=== PATIENT | female | born 1935 | race Two or more races ===

== ENCOUNTER → 2023-12-28 | Outpatient (CLI) | payer MEDICARE, BC, SELFPAY ==
[2023-12-28 10:35] LABS: Basophils % (Auto) 0 % (0-2.5); Eosinophils # (Auto) 0.1 Thou/mm3 (0.0-0.5); Eosinophils % (Auto) 1 % (0-10); Hematocrit 36.9 % (36.0-46.0); Hemoglobin 12.7 g/dL (12.0-16.0); Immature Granulocytes % (Auto) 0 % (0-0); Immature Granulocytes Auto 0.02 Thou/mm3 (0.00-0.00); Lymphocytes # (Auto) 2.4 Thou/mm3 (1.0-4.8); Lymphocytes % (Auto) 39 % (10-50); Mean Corpuscular HGB Conc 34.4 g/dl (31.0-37.0); Mean Corpuscular Hemoglobin 30.6 pg (25.0-35.0); Mean Corpuscular Volume 89 fL (80-100); Monocytes # (Auto) 0.4 Thou/mm3 (0.0-0.8); Monocytes % (Auto) 7 % (0-12); Neutrophils # (Auto) 3.1 Thou/mm3 (1.8-7.7); Neutrophils % (Auto) 52 % (37-80); Nucleated Red Blood Cell % 0 /100 WBC (0); Platelet Count 167 Thou/mm3 (140-440); RDW Standard Deviation 45.7 fL (36.4-46.3); Red Blood Count 4.15 Miln/mm3 (4.00-5.20)
[2023-12-28 10:53] LABS: Alanine Aminotransferase 14 U/L (10-49); Albumin, Serum 4.2 gm/dL (3.4-4.8); Albumin/Globulin Ratio 1.6 (1.2-2.2); Alkaline Phosphatase 74 U/L (46-116); Anion Gap 7 (7-16); Aspartate Amino Transferase 24 U/L (0-34); BUN/Creatinine Ratio 24 Ratio (12-20); Bilirubin,Total 0.7 mg/dL (0.3-1.2); Blood Urea Nitrogen 19 mg/dL (9-23); Calcium 9.2 mg/dL (8.3-10.6); Calcium (Corrected) 9.2 mg/dL (8.5-10.1); Carbon Dioxide 29.4 mMol/L (20.0-31.0); Cardiac Risk Estimate 3.1 RATIO (3.7-5.6); Chloride 106 mMol/L (98-107); Cholesterol 159 mg/dL (132-200); Creatinine (Component) 0.8 mg/dL (0.6-1.3); Globulin 2.6 gm/dL (2.3-3.5); Glucose 116 mg/dL (74-106); HDL Cholesterol 51 mg/dL (40-60); LDL Cholesterol,Calculated 84 mg/dL (0-130); Osmolality,Calculated 286 (275-295); Potassium 3.8 mMol/L (3.4-5.1); Sodium 142 mMol/L (136-145); Total Protein 6.8 gm/dL (5.7-8.2); Triglycerides 122 mg/dL (30-150); eGFR > 60 See Note
[2023-12-28 11:14] LABS: Glucose Estimated Average 128 mg/dL (80-131); Hemoglobin A1C 6.1 % Hgb (4.8-6.0)
== END | disposition home or self-care (01) ==
LOC: COPL 09:29
PROVIDERS: PCP Family Medicine; Referring Provider Family Medicine; Visit Provider Family Medicine
DX: I12.9 Hypertensive chronic kidney disease with stage 1 through stage 4 chronic kidney disease, or unspecified chronic kidney disease (principal); E11.22 Type 2 diabetes mellitus with diabetic chronic kidney disease; N18.1 Chronic kidney disease, stage 1; E78.2 Mixed hyperlipidemia
CPT/HCPCS: 36415; 80053; 80061; 83036; 85025

== ENCOUNTER → 2024-01-20 | Outpatient (CLI) | payer MEDICARE, BC, SELFPAY ==
--- NOTE | 2024-01-20 13:51 | XR_ITS ---
Examination: Lumbar spine, 5 views Technique: Lumbar spine AP, lateral, coned lateral lower lumbar spine, bilateral obliques 5 views Exam date and time: January 20, 2024 1527 hours INDICATIONS: Patient fell 2 weeks ago with injury to lower back, lower back pain. FINDINGS: Adequate alignment lumbar vertebral bodies No lumbar fracture Moderate disc narrowing L5-S1 No spondylolisthesis IMPRESSION: No lumbar fracture Moderate degenerative disc disease L5-S1
--- NOTE | 2024-01-20 13:52 | XR_ITS ---
EXAMINATION: Cervical spine, 5 views Technique: Cervical spine AP, AP odontoid, lateral, bilateral obliques, 5 views Exam date and time: January 20, 2024 1527 hours INDICATIONS: Patient fell 2 weeks ago with injury to the neck, neck pain FINDINGS: Satisfactory alignment cervical vertebral bodies No cervical fracture Mild disc narrowing C5-C6 No significant neural foraminal stenosis The odontoid is intact IMPRESSION: No cervical fracture
== END | disposition home or self-care (01) ==
PROVIDERS: PCP Family Medicine; Referring Provider Physician Assistant; Visit Provider Physician Assistant
DX: M51.379 Other intervertebral disc degeneration, lumbosacral region without mention of lumbar back pain or lower extremity pain (principal); S19.9XXA Unspecified injury of neck, initial encounter; S39.92XA Unspecified injury of lower back, initial encounter; W19.XXXA Unspecified fall, initial encounter
CPT/HCPCS: 72050; 72110

== ENCOUNTER → 2024-05-10 | Outpatient (CLI) | payer MEDICARE, BC, SELFPAY ==
[2024-05-10 12:12] LABS: Glucose Estimated Average 120 mg/dL (80-131); Hemoglobin A1C 5.8 % Hgb (4.8-6.0)
[2024-05-10 12:59] LABS: Alanine Aminotransferase 14 U/L (10-49); Albumin, Serum 3.9 gm/dL (3.4-4.8); Albumin/Globulin Ratio 1.6 (1.2-2.2); Alkaline Phosphatase 69 U/L (46-116); Anion Gap 7 (7-16); Aspartate Amino Transferase 26 U/L (0-34); BUN/Creatinine Ratio 22 Ratio (12-20); Bilirubin,Total 0.5 mg/dL (0.3-1.2); Blood Urea Nitrogen 20 mg/dL (9-23); Calcium 8.8 mg/dL (8.3-10.6); Calcium (Corrected) 8.9 mg/dL (8.5-10.1); Carbon Dioxide 28.7 mMol/L (20.0-31.0); Chloride 108 mMol/L (98-107); Creatinine (Component) 0.9 mg/dL (0.6-1.3); Globulin 2.5 gm/dL (2.3-3.5); Glucose 110 mg/dL (74-106); Osmolality,Calculated 290 (275-295); Potassium 3.9 mMol/L (3.4-5.1); Sodium 144 mMol/L (136-145); Total Protein 6.4 gm/dL (5.7-8.2); eGFR > 60 See Note
== END | disposition home or self-care (01) ==
LOC: COPL 11:38
PROVIDERS: PCP Family Medicine; Referring Provider Family Medicine; Visit Provider Family Medicine
DX: E11.9 Type 2 diabetes mellitus without complications (principal); K21.9 Gastro-esophageal reflux disease without esophagitis; I10 Essential (primary) hypertension
CPT/HCPCS: 36415; 80053; 83036

== ENCOUNTER → 2024-07-22 | Outpatient (CLI) | payer MEDICARE, BC, SELFPAY ==
[2024-07-22 12:49] LABS: Basophils % (Auto) 0 % (0-2.5); Eosinophils # (Auto) 0.1 Thou/mm3 (0.0-0.5); Eosinophils % (Auto) 1 % (0-10); Hematocrit 34.8 % (36.0-46.0); Hemoglobin 11.8 g/dL (12.0-16.0); Immature Granulocytes % (Auto) 0 % (0-0); Immature Granulocytes Auto 0.01 Thou/mm3 (0.00-0.00); Lymphocytes # (Auto) 2.2 Thou/mm3 (1.0-4.8); Lymphocytes % (Auto) 37 % (10-50); Mean Corpuscular HGB Conc 33.9 g/dl (31.0-37.0); Mean Corpuscular Hemoglobin 31.1 pg (25.0-35.0); Mean Corpuscular Volume 92 fL (80-100); Monocytes # (Auto) 0.4 Thou/mm3 (0.0-0.8); Monocytes % (Auto) 7 % (0-12); Neutrophils # (Auto) 3.3 Thou/mm3 (1.8-7.7); Neutrophils % (Auto) 55 % (37-80); Nucleated Red Blood Cell % 0 /100 WBC (0); Platelet Count 165 Thou/mm3 (140-440); RDW Standard Deviation 46.1 fL (36.4-46.3)
[2024-07-22 12:56] LABS: Partial Thromboplastin Time 25.9 Seconds (22.0-36.0); Prothrombin Time 11.2 Seconds (9.0-12.2)
[2024-07-22 13:04] LABS: Anion Gap 9 (7-16); BUN/Creatinine Ratio 21 Ratio (12-20); Blood Urea Nitrogen 23 mg/dL (9-23); Calcium 8.8 mg/dL (8.3-10.6); Carbon Dioxide 27.9 mMol/L (20.0-31.0); Chloride 106 mMol/L (98-107); Creatinine (Component) 1.1 mg/dL (0.6-1.3); Glucose 153 mg/dL (74-106); Osmolality,Calculated 291 (275-295); Potassium 3.8 mMol/L (3.4-5.1); Sodium 143 mMol/L (136-145); eGFR 49 See Note
== END | disposition home or self-care (01) ==
LOC: COPL 11:55
PROVIDERS: PCP Family Medicine; Referring Provider Internal Medicine; Visit Provider Internal Medicine
DX: I25.10 Atherosclerotic heart disease of native coronary artery without angina pectoris (principal); I48.91 Unspecified atrial fibrillation
CPT/HCPCS: 36415; 80048; 85025; 85610; 85730

== ENCOUNTER → 2024-08-10 | Outpatient (CLI) | payer MEDICARE, BC, SELFPAY ==
[2024-08-10 08:42] LABS: Basophils # (Auto) 0.0 Thou/mm3 (0.0-0.2); Basophils % (Auto) 1 % (0-2.5); Eosinophils # (Auto) 0.1 Thou/mm3 (0.0-0.5); Eosinophils % (Auto) 2 % (0-10); Hematocrit 34.4 % (36.0-46.0); Hemoglobin 11.6 g/dL (12.0-16.0); Immature Granulocytes Auto 0.01 Thou/mm3 (0.00-0.00); Lymphocytes # (Auto) 2.4 Thou/mm3 (1.0-4.8); Lymphocytes % (Auto) 42 % (10-50); Mean Corpuscular HGB Conc 33.7 g/dl (31.0-37.0); Mean Corpuscular Hemoglobin 31.1 pg (25.0-35.0); Mean Corpuscular Volume 92 fL (80-100); Monocytes # (Auto) 0.5 Thou/mm3 (0.0-0.8); Monocytes % (Auto) 8 % (0-12); Neutrophils # (Auto) 2.7 Thou/mm3 (1.8-7.7); Neutrophils % (Auto) 48 % (37-80); Nucleated Red Blood Cell # 0.00 Thou/mm3 (0.00-0.00); Nucleated Red Blood Cell % 0 /100 WBC (0); Platelet Count 176 Thou/mm3 (140-440); RDW Standard Deviation 46.0 fL (36.4-46.3); Red Blood Count 3.73 Miln/mm3 (4.00-5.20); White Blood Count 5.7 Thou/mm3 (3.6-11.0)
[2024-08-10 09:07] LABS: Alanine Aminotransferase 12 U/L (10-49); Albumin, Serum 3.8 gm/dL (3.4-4.8); Albumin/Globulin Ratio 1.4 (1.2-2.2); Alkaline Phosphatase 58 U/L (46-116); Anion Gap 5 (7-16); Aspartate Amino Transferase 26 U/L (0-34); BUN/Creatinine Ratio 20 Ratio (12-20); Bilirubin,Total 0.8 mg/dL (0.3-1.2); Blood Urea Nitrogen 20 mg/dL (9-23); Calcium 8.8 mg/dL (8.3-10.6); Calcium (Corrected) 9.0 mg/dL (8.5-10.1); Carbon Dioxide 29.9 mMol/L (20.0-31.0); Cardiac Risk Estimate 3.5 RATIO (3.7-5.6); Chloride 109 mMol/L (98-107); Cholesterol 154 mg/dL (132-200); Creatinine (Component) 1.0 mg/dL (0.6-1.3); Globulin 2.7 gm/dL (2.3-3.5); Glucose 96 mg/dL (74-106); HDL Cholesterol 44 mg/dL (40-60); LDL Cholesterol,Calculated 84 mg/dL (0-130); Osmolality,Calculated 289 (275-295); Potassium 3.9 mMol/L (3.4-5.1); Sodium 144 mMol/L (136-145); Total Protein 6.5 gm/dL (5.7-8.2); Triglycerides 128 mg/dL (30-150); eGFR 55 See Note
[2024-08-10 09:11] LABS: Glucose Estimated Average 114 mg/dL (80-131); Hemoglobin A1C 5.6 % Hgb (4.8-6.0)
== END | disposition home or self-care (01) ==
LOC: COPL 07:41
PROVIDERS: PCP Family Medicine; Referring Provider Family Medicine; Visit Provider Family Medicine
DX: E11.22 Type 2 diabetes mellitus with diabetic chronic kidney disease (principal); N18.31 Chronic kidney disease, stage 3a; E78.2 Mixed hyperlipidemia
CPT/HCPCS: 36415; 80053; 80061; 83036; 85025

== ENCOUNTER → 2024-08-29 | Outpatient (CLI) | payer MEDICARE, BC, SELFPAY ==
--- NOTE | 2024-08-29 13:45 | XR_ITS ---
Examination: Screening digital mammography, bilateral Computer aided detection 3-D breast Tomosynthesis, bilateral Date and time of exam: August 29, 2024 1401 hours Compared to mammograms dating to February 10, 2019 Indication: Screening Technique: Nonmagnified MLO, CC views of the breasts to been obtained, reconstructed from 3-D Tomosynthesis images. R2 computer aided detection program utilized for evaluation of suspicious masses and/or abnormal calcifications. 3-D Tomosynthesis images obtained. Findings: The breasts are heterogeneously dense, which may obscure small masses Benign calcifications No interval suspicious masses Impression: BI-RADS category II: Benign Findings. Recommend 1 year follow-up mammogram.
--- NOTE | 2024-08-29 14:00 | XR_ITS ---
Examination: Bone densitometry Date and time of exam:August 29, 2024 1403 hours INDICATIONS: Hysterectomy age 37, diabetic, personal history osteopenia Technique: Lumbar spine and hip total bone mineralization values of an calculated. Peak reference and age match control results have been displayed. Findings: Lumbar spine total bone mineralization is0.972 gm/cm2. This is 0.7 standard deviations below peak reference. Hip total bone mineralization is 0.762 gm/cm2 This is 1.5 standard deviations below peak reference. Impression: There is normal mineralization based on lumbar spine measurements. There is osteoporosis based on hip measurements Lumbar mineralization is increase 0.9% compared with 11/08/2021 Hip mineralization is decreased 1.6% compared with 11/08/2021
== END | disposition home or self-care (01) ==
LOC: CDIM 13:32
PROVIDERS: Referring Provider Family Medicine; Visit Provider Family Medicine
DX: Z12.31 Encounter for screening mammogram for malignant neoplasm of breast (principal); R92.1 Mammographic calcification found on diagnostic imaging of breast; R92.333 Mammographic heterogeneous density, bilateral breasts; M81.0 Age-related osteoporosis without current pathological fracture
CPT/HCPCS: 77063; 77067; 77080

== ENCOUNTER → 2024-09-28 | Outpatient (CLI) | payer MEDICARE, BC, SELFPAY ==
[2024-10-03 06:57] LABS: Fecal Globin Result NOT DETECTED (NOT DETECTED)
== END | disposition home or self-care (01) ==
LOC: SLDO 11:09
PROVIDERS: PCP Family Medicine; Referring Provider Family Medicine; Visit Provider Family Medicine
DX: Z12.11 Encounter for screening for malignant neoplasm of colon (principal)
CPT/HCPCS: 82274; G0328

== ENCOUNTER → 2024-12-16 | Outpatient (CLI) | payer MEDICARE, BC, SELFPAY ==
[2024-12-16 16:26] LABS: Basophils # (Auto) 0.0 Thou/mm3 (0.0-0.2); Basophils % (Auto) 1 % (0-2.5); Eosinophils # (Auto) 0.1 Thou/mm3 (0.0-0.5); Eosinophils % (Auto) 1 % (0-10); Hematocrit 36.7 % (36.0-46.0); Hemoglobin 12.6 g/dL (12.0-16.0); Immature Granulocytes Auto 0.01 Thou/mm3 (0.00-0.00); Lymphocytes # (Auto) 2.4 Thou/mm3 (1.0-4.8); Lymphocytes % (Auto) 37 % (10-50); Mean Corpuscular HGB Conc 34.3 g/dl (31.0-37.0); Mean Corpuscular Hemoglobin 31.0 pg (25.0-35.0); Mean Corpuscular Volume 90 fL (80-100); Monocytes # (Auto) 0.4 Thou/mm3 (0.0-0.8); Monocytes % (Auto) 7 % (0-12); Neutrophils # (Auto) 3.5 Thou/mm3 (1.8-7.7); Neutrophils % (Auto) 54 % (37-80); Nucleated Red Blood Cell # 0.00 Thou/mm3 (0.00-0.00); Nucleated Red Blood Cell % 0 /100 WBC (0); Platelet Count 180 Thou/mm3 (140-440); RDW Standard Deviation 44.6 fL (36.4-46.3); Red Blood Count 4.06 Miln/mm3 (4.00-5.20); White Blood Count 6.4 Thou/mm3 (3.6-11.0)
[2024-12-16 16:53] LABS: Iron 69 mcg/dL (50-170); Percent Iron Saturation 23 % (20-55); Total Iron Binding Capacity 291 mcg/dL (250-425); Unsaturated Iron Binding 222 (225-295)
== END | disposition home or self-care (01) ==
LOC: COPL 13:56
PROVIDERS: PCP Family Medicine; Referring Provider Registered Nurse; Visit Provider Registered Nurse
DX: D64.9 Anemia, unspecified (principal)
CPT/HCPCS: 36415; 83540; 83550; 85025

== ENCOUNTER 2025-01-16 15:52 | Emergency (ER) | payer MEDICARE, BC, SELFPAY ==
[2025-01-16 15:59] VITALS: BP 167/100; PULSE 87; RESP 28; TEMP 36.4; O2SAT 96; BMI 20.1
--- NOTE | 2025-01-16 16:10 | XR_ITS ---
Examination: CT brain head without contrast. 2-D sagittal coronal reconstructions Date and time of exam: 01/16/2025 at 5:21 p.m. CTDI: vol (mGy): 46.5 DLP: (mGycm): 940 Technique: Multiple CT axial sections of the brain have been obtained, 5 mm slice thickness. Contrast has not been administered. 2-D sagittal, coronal reconstructions have been obtained Low dose protocols were performed. One or more of the following dose reduction techniques were used; automated exposure control, adjustment of the mA and/or KV according to patient size, use of iterative reconstruction technique. INDICATION: Pain in the back of her head after traumatic fall today Findings: There is moderately prominent dilatation of the lateral ventricles and the third ventricle, consistent with moderate central atrophy, perfectly consistent with the patient's advanced age there is heavy calcification of the internal carotid arteries bilaterally within the region of the cavernous sinus. There is significant generalized atrophy of both right and left sella cerebellar hemispheres and there is significant dilatation of the sylvian cisterns bilaterally and of the extra axial space overlying the anterior temporal lobes consistent with significant atrophy in the anterior temporal lobes bilaterally. 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 There are patchy areas of decreased attenuation involving the periventricular cerebral white matter consistent with age changes. There is no evidence of any acute or recent cerebral infarct anywhere. There is no evidence of any subdural hematoma and there is no evidence of any fracture involving the calvarium. All paranasal sinuses and mastoids are clear and normal bilaterally. The visible upper cervical spine appears normal Impression: Negative for acute hemorrhage, mass effect or midline shift, also negative for any traumatic abnormalities. 2 there is moderately prominent dilatation of the lateral and third ventricles consistent with central atrophy, there is diffuse patchy decreased attenuation in the cerebral white matter likewise related to chronic atrophic change, and there is significant dilatation of the extra-axial space over the anterior temporal lobes and within the sylvian cisterns bilaterally, relating to atrophy this is consistent with the patient's advanced age, there is also prominent atrophy of the cerebellar hemispheres bilaterally
--- NOTE | 2025-01-16 16:10 | XR_ITS ---
Upright PA and lateral chest film on 01/16/2025 at 4:34: P.m. Comparison study 05/10/2019 INDICATION: Shortness of breath today FINDINGS: The heart size and configuration are normal. There is mild tortuosity and elongation of the thoracic aorta and there is heavy atherosclerotic calcification throughout the descending aorta. Hilar regions and pulmonary vascularity and mediastinum appear radiographically normal. Both lungs and pleural space appear clear normal. The lateral film shows a pectus excavatum deformity involving the sternum. There is very minimal degenerative disc space narrowing with surrounding osteophyte seen at multiple levels throughout the dorsal spine. IMPRESSION: 1. Essentially negative chest film for the patient's age 2. See above regarding some minor finding
--- NOTE | 2025-01-16 16:13 | EKG_ITS ---
[facility] Test Date: 2025-01-16 Pat Name: SUZAN CURRY Department: Room: - Gender: Female Hand Shaper: : [id number] Requested By: Bryson Llamas Order Number: [id number] Reading MD: Bryson Llamas Measurements Intervals [place] Rate: 81 P: 76 WI: 178 QRS: 268 QRSD: 74 T: 64 QT: 375 QTc: 436 Interpretive Statements SINUS RHYTHM POSSIBLE LEFT ATRIAL ENLARGEMENT [-0.1mV P-WAVE IN V1/V2] RIGHT AXIS DEVIATION [QRS AXIS > 100] POSSIBLE RIGHT VENTRICULAR CONDUCTION DELAY [RSR (QR) IN V1/V2] POSSIBLE ANTERIOR MYOCARDIAL INFARCTION , OF INDETERMINATE AGE [30 ms Q WAVE IN V3/V4, OR R < 0.2 mV IN V4] Compared to ECG 03/14/2021 09:53:06 Right-axis deviation now present Myocardial infarct finding now present Left-axis deviation no longer present T-wave abnormality no longer present /store/S0/[id number].pdf
--- NOTE | 2025-01-16 16:13 | PD.EDRME ---
Rapid Medical Screening Exam RME Arrival date/time: 01/16/25 15:52 89-year-old female with a history of hypertension reports with complaints of dizziness chest pain and shortness of breath and a fall hitting her head today Chief Complaint: Fall Time Seen by Provider: 01/16/25 16:04 Vital signs: Vital Signs Temperature 97.6 F 01/16/25 15:59 Pulse Rate 87 01/16/25 15:59 Respiratory Rate 28 H 01/16/25 15:59 Blood Pressure 167/100 H 01/16/25 15:59 Pulse Oximetry (%) 96 01/16/25 15:59 Oxygen Delivery Method Room Air 01/16/25 15:59 Exam: - Clinical Impression: -
[2025-01-16 16:58] LABS: Basophils # (Auto) 0.0 Thou/mm3 (0.0-0.2); Basophils % (Auto) 0 % (0-2.5); Eosinophils # (Auto) 0.0 Thou/mm3 (0.0-0.5); Eosinophils % (Auto) 0 % (0-10); Hematocrit 37.6 % (36.0-46.0); Hemoglobin 13.2 g/dL (12.0-16.0); Immature Granulocytes Auto 0.04 Thou/mm3 (0.00-0.00); Lymphocytes # (Auto) 2.1 Thou/mm3 (1.0-4.8); Lymphocytes % (Auto) 16 % (10-50); Mean Corpuscular HGB Conc 35.1 g/dl (31.0-37.0); Mean Corpuscular Hemoglobin 31.1 pg (25.0-35.0); Mean Corpuscular Volume 89 fL (80-100); Monocytes # (Auto) 0.8 Thou/mm3 (0.0-0.8); Monocytes % (Auto) 7 % (0-12); Neutrophils # (Auto) 9.7 Thou/mm3 (1.8-7.7); Neutrophils % (Auto) 77 % (37-80); Nucleated Red Blood Cell # 0.00 Thou/mm3 (0.00-0.00); Nucleated Red Blood Cell % 0 /100 WBC (0); Platelet Count 209 Thou/mm3 (140-440); RDW Standard Deviation 42.1 fL (36.4-46.3); Red Blood Count 4.25 Miln/mm3 (4.00-5.20); White Blood Count 12.7 Thou/mm3 (3.6-11.0)
[2025-01-16 17:10] LABS: B-Type Natriuretic Peptide 72 pg/mL (0-100)
[2025-01-16 17:12] LABS: Alanine Aminotransferase 23 U/L (10-49); Albumin, Serum 4.5 gm/dL (3.4-4.8); Albumin/Globulin Ratio 1.4 (1.2-2.2); Alkaline Phosphatase 66 U/L (46-116); Anion Gap 17 (7-16); Aspartate Amino Transferase 75 U/L (0-34); BUN/Creatinine Ratio 18 Ratio (12-20); Bilirubin,Total 2.0 mg/dL (0.3-1.2); Blood Urea Nitrogen 20 mg/dL (9-23); Calcium 9.7 mg/dL (8.3-10.6); Calcium (Corrected) 9.7 mg/dL (8.5-10.1); Carbon Dioxide 22.9 mMol/L (20.0-31.0); Chloride 102 mMol/L (98-107); Creatinine (Component) 1.1 mg/dL (0.6-1.3); Globulin 3.2 gm/dL (2.3-3.5); Glucose 147 mg/dL (74-106); Magnesium 1.0 mg/dL (1.6-2.6); Osmolality,Calculated 288 (275-295); Potassium 3.5 mMol/L (3.4-5.1); Sodium 142 mMol/L (136-145); Total Protein 7.7 gm/dL (5.7-8.2); Troponin I 0.038 ng/mL (0.0-0.045); eGFR 49 See Note
--- NOTE | 2025-01-16 17:34 | PD.EDADULT ---
ED General RME/HPI General Chief complaint: Fall Stated complaint: FALL YESTERDAY, HIT HEAD ON WOOD FLOOR, SOB, CP Time Seen by Provider: 01/16/25 16:04 Arrival date/time: 01/16/25 15:52 89-year-old female who is a poor historian is ambulatory to the emergency department with a multitudes of symptoms including dyspnea, chest pain and falling down. She reports that the fall was unwitnessed and is unsure if she hit her head or lost consciousness. The patient denies experiencing dizziness, blurred vision, tinnitus, nausea, vomiting, abdominal pain, or any neck or back pain. She mentions taking medications for hypertension and an aspirin daily. Although she does not recall taking any other medications or having additional medical conditions, her medical records suggest possible use of metformin and Fosamax. Limitations: no limitations RME / HPI RME / HPI narrative: 01/16/25 15:52 89-year-old female with a history of hypertension reports with complaints of dizziness chest pain and shortness of breath and a fall hitting her head today Exam: - Impression: - Related Data Home Medications ?Medication ?Instructions ?Recorded ?Confirmed Alendronate Sodium * (FOSAMAX *) 70 mg PO Q7D #0 tabs 05/21/15 03/20/20 Calcium Carbonate (Calcium 600) 1 tab PO BID ##0 05/21/15 03/20/20 hydrochlorothiazide 12.5 mg 12.5 mg PO QAM #0 caps 05/21/15 03/20/20 capsule (Microzide) lisinopril 10 mg tablet 10 mg PO QDAY #0 tabs 05/21/15 03/20/20 metformin 500 mg tablet 500 mg PO QDAY #0 tabs 02/23/20 03/20/20 (Glucophage) multivitamin 1 tab PO QDAY 02/23/20 03/20/20 Previous Rx's ?Medication ?Instructions ?Recorded nitrofurantoin 100 mg PO Q12H 7 days #14 caps 01/16/25 monohydrate/macrocrystals 100 mg capsule (Macrobid) Allergies Allergy/AdvReac Type Severity Reaction Status Date / Time No Known Allergies Allergy Verified 01/16/25 15:56 Review of Systems Constitutional Constitutional: Denies chills, Denies fatigue, Denies fever(s) and Denies frequent falls ENT Ears, Nose, Mouth, and Throat: Denies dizziness Cardiovascular Cardiovascular: Reports chest pain, Reports dyspnea and Denies syncope Respiratory Respiratory: Denies cough and Reports dyspnea Gastrointestinal Gastrointestinal: Denies abdominal pain, Denies nausea and Denies vomiting Genitourinary Genitourinary: Denies dysuria and Denies hematuria Musculoskeletal Musculoskeletal: Denies arthralgias and Denies back pain Integumentary/Breasts Skin/Breast: Denies rash and Denies skin pain Neurologic Neurologic: Denies dizziness, Denies frequent falls, Denies seizure-like activity and Denies syncope Endocrine Endocrine: Denies fatigue Past Medical History Past Medical History CARDIAC: Negative Congestive Heart Failure RESPIRATORY: Negative Chronic Obstructive Pulmonary Disease (COPD) GENITOURINARY: Negative Renal Disease ENDOCRINE: Positive Diabetes Mellitus Type 2; Negative Diabetes Mellitus Type 1 Social History SMOKING STATUS: Never smoker ED Exam General Limitations: Present no limitations General appearance: Present alert and anxious Head Head exam: Present atraumatic Eye Eye exam: Present normal appearance, PERRL and EOMI ENT ENT exam: Present normal exam, normal oropharynx and mucous membranes moist Neck Neck exam: Present normal inspection, full ROM and trachea midline Chest Chest inspection: Present normal inspection and symmetric chest wall rise Respiratory Respiratory exam: Present normal lung sounds bilaterally Cardiovascular Cardiovascular exam: Present regular rate, normal rhythm and normal heart sounds Abdominal Exam Abdominal exam: Present soft and normal bowel sounds Extremities Exam Extremities exam: Present normal inspection and full ROM Back Exam Back exam: Present normal inspection and full ROM Neurological Exam Neurological exam: Present alert, oriented X3 and CN II-XII intact Psychiatric Psychiatric exam: Present normal affect and normal mood Skin Skin exam: Present warm, dry, intact and normal color Course Course Course Narrative: 89-year-old female, who is a limited historian, presents ambulatory to the emergency department with multiple symptoms, including dyspnea, chest pain, and a fall. Her EKG shows normal sinus rhythm with no evidence of STEMI or ischemic changes. A chest X-ray is negative for infiltrates or opacities, and a head CT does not reveal any bleeds or shifts. Laboratory results, including BMP, CBC, CMP, and troponin, are unremarkable, but her magnesium level is low. She was administered 4g of magnesium sulfate IV replacement, which she tolerated well. A urine analysis indicates signs of infection, and she was given a gram of Rocephin in the ER and will be discharged with oral antibiotics, with a culture pending. The patient exhibits significant anxiety, particularly when discussing her health, sometimes hyperventilating, though she returns to baseline after the conversation ends. This suggests a possible psychosomatic component to her symptoms. The patient is otherwise stable nontoxic-appearing with stable vital signs and will be discharged with a follow-up visit to her primary care provider in 24 to 48 hours. She is also advised to return to the emergency department if symptoms should worsen. Discussed plan with Dr. Gustafson and he agreed with this disposition. Quality Measures none Orders Category Date Time Status EKG (ED ONLY) *Do not use* NOW Care 01/16/25 16:[address] head/brain wo con Stat Exams 01/16/25 16:10 Completed EKG (ED Only) Stat Exams 01/16/25 16:13 Draft XR chest 2V Stat Exams 01/16/25 16:10 Completed BNP [B-Type Natriuretic Peptide] Stat Lab 01/16/25 16:33 Completed CBC Stat Lab 01/16/25 16:33 Completed CMP [Comprehensive Metabolic Panel] Stat Lab 01/16/25 16:33 Completed Mag [Magnesium] Stat Lab 01/16/25 16:33 Completed Troponin I Stat Lab 01/16/25 16:33 Completed UA, C/S IF [Urinalysis, C/S if Indicated] Stat Lab 01/16/25 19:29 Completed Urine Culture Stat Lab 01/16/25 19:29 Received Magnesium Sulfate 4 GM Ivpb [Magnesium Sulfate Ivpb] Med 01/16/25 17:33 Discontinued 4 gm in 50 ml IV X1 cefTRIAXone/D5w 1gm IV premix [Rocephin/D5w 1gm IV Med 01/16/25 20:51 Discontinued premix] 1 gm in 50 ml IV X1 Vital Signs Vital signs: Vital Signs Temperature 97.6 F 01/16/25 15:59 Pulse Rate 87 01/16/25 15:59 Respiratory Rate 28 H 01/16/25 15:59 Blood Pressure 167/100 H 01/16/25 15:59 Pulse Oximetry (%) 96 01/16/25 15:59 Oxygen Delivery Method Room Air 01/16/25 15:59 Discharge Plan Plan Patient Disposition: HOME (Self Care) Prescriptions/Referrals Prescriptions/Med Rec: New nitrofurantoin monohyd/m-cryst [Macrobid] 100 mg capsule 100 mg PO Q12H 7 Days Qty: 14 0RF Rx Instructions: must administer with a meal/food No Action multivitamin Tablet 1 tab PO QDAY Alendronate Sodium * (FOSAMAX *) 70 MG tablet 70 mg PO Q7D Qty: 0 lisinopril 10 MG tablet 10 mg PO QDAY Qty: 0 hydrochlorothiazide [Microzide] 12.5 MG capsule 12.5 mg PO QAM Qty: 0 Calcium Carbonate (Calcium 600) 600 MG tablet 1 tab PO BID Qty: 0 metformin [Glucophage] 500 mg tablet 500 mg PO QDAY Qty: 0 Referrals: Rajiv Garcia MD [Primary Care Provider, Family Practice] - 01/18/25 Problem List Clinical Impression: Hypomagnesemia, Acute cystitis Patient/Caregiver Discharge Instructions Discharge Activity: activity as tolerated Education Materials: Discharge Instructions for ..., ED CYSTITIS Female Adult Additional Instructions: Take medications as directed hydrate well follow-up with your primary care provider in 48 hours. If symptoms worsen return to the emergency department immediately Print Language: Belarusian Stand Alone Forms: Rachel Award Info., Patient Portal Info Letter MDM Medication Administration(s) Medication Administration History Discontinued Medications Magnesium Sulfate (Magnesium Sulfate Ivpb) 4 gm in 50 mls @ 12.5 mls/hr IV X1 ONE Stop: 01/16/25 21:32 Last Infusion: 01/16/25 21:22 Dose: Infused Documented By: Admin: 01/16/25 18:35 Dose: 12.5 mls/hr Documented By: HAROON Ceftriaxone Sodium/Dextrose (Rocephin/D5w 1gm Iv Premix) 1 gm in 50 mls @ 100 mls/hr IV X1 ONE Stop: 01/16/25 21:20 Last Admin: 01/16/25 21:22 Dose: 100 mls/hr Documented By: DENG
[2025-01-16 18:34] VITALS: BP 166/86; PULSE 60; RESP 20; O2SAT 100
[2025-01-16] MEDS: Magnesium Sulfate 4 GM Ivpb 4 GM/50 ML BAG IV (18:35)
--- NOTE | 2025-01-16 18:43 | PC.NURSE ---
CALLED PT TO GIVE URINE. NO ANSWER WHEN CALLED.
--- NOTE | 2025-01-16 18:49 | PC.NURSE ---
CALLED PT SECOND TIME FOR URINE; NO ANSWER.
--- NOTE | 2025-01-16 18:56 | PC.NURSE ---
PT IN ROOM 2
[2025-01-16 19:25] VITALS: BP 168/63; PULSE 112; RESP 21; TEMP 36.6; O2SAT 98
[2025-01-16 20:27] LABS: Collection Type, Urine Clean Catch
[2025-01-16 20:37] LABS: Amorphous Crystals,Urine Present (Absent); Bilirubin,Urine Negative (Negative); Blood,Urine 3+ (Negative); Clarity,Urine Turbid (Clear/Hazy); Color,Urine Yellow (Lt Yel-Yel); Glucose, Urine Negative (Negative); Ketones,Urine 2+ (Negative); Leukocyte Esterase,Urine Positive (Negative); Nitrite,Urine Negative (Negative); PH,Urine 6.5 (5.0-7.0); Protein,Urine 2+ (Neg - Trace); RBC,Urine 911 /hpf (0-3); Specific Gravity,Urine 1.025 (1.001-1.035); Squamous Epithelial Cell,Urine 1 /hpf (0-5); Urobilinogen,Urine 3.0 mg/dL (0.0-1.0); WBC,Urine 60 /hpf (0-5)
[2025-01-16 20:42] LABS: Culture Indicated,Urine Yes
[2025-01-16 21:10] VITALS: BP 187/72; PULSE 61; RESP 22; TEMP 36.5; O2SAT 100
[2025-01-16] MEDS: cefTRIAXone/D5w 1gm IV premix 1 GM/50 ML BAG IV (21:22)
== END 2025-01-16 22:21 | disposition home or self-care (01) ==
PROVIDERS: Physician Assistant; Emergency Provider Emergency Medicine; PCP Family Medicine
DX: N30.00 Acute cystitis without hematuria (principal); E83.42 Hypomagnesemia; S09.90XA Unspecified injury of head, initial encounter; R06.02 Shortness of breath; W19.XXXA Unspecified fall, initial encounter; R94.31 Abnormal electrocardiogram [ECG] [EKG]
CPT/HCPCS: 36415; 70450; 71046; 80053; 81001; 83735; 83880; 84484; 85025; 87086; 93005; 96365; 96366; 99284; J0696; J3475